=== PATIENT | male | born 1980 | race Two or more races ===

== ENCOUNTER 2021-11-07 10:04 | Inpatient (IN) | payer SELFPAY ==
[2021-11-07] VITALS (33 sets, daily range): BP systolic 81–105; BP diastolic 48–63
[~2021-11-07] VITALS: Ht 182.9 cm; Wt 81.6 kg
--- NOTE | 2021-11-07 10:05 | NUR ---
BIBRA86 FROM STREETS, FOUND UNRESPONSIVE, TACHYCARDIC. NARCAN 2MG GIVEN SWING FRAME GRINDER OPERATOR. PT HOT TO TOUCH, BG 180. PLACED ON BED, NOT RESPONDING TO DEEP PAINFUL STIMULI, SATURATING AT 96% ON NON REBREATHING MASK.
[2021-11-07] MEDS ORDERED: PROPOFOL 0 ML ONE (10:09)
--- NOTE | 2021-11-07 10:10 | NUR ---
PATIENT INTUBATED BY DR ALVA WITH ETOMIDATE 20MG, ROCC 100MCG, ET TUBE 7.5 AT 25LIP, ATTACHED TO VENTILATOR BY RESP. TECH WITH SETTING AC/VC FIO2-50%, VT-500, RATE-16, PEEP-5 SATURATING AT 100%
--- NOTE | 2021-11-07 10:15 | NUR ---
BLOOD DRAWN, SWAB FOR COVID19 AND URINE SAMPLE SENT TO LAB
[2021-11-07] MEDS ORDERED: VANCOMYCIN 1 GM in IV D5W 250 ML IV ONE (10:30)
[2021-11-07] MEDS ORDERED: CEFEPIME 1 GM in IV D5W 50 ML IV ONE (10:30)
[2021-11-07] MEDS ORDERED: IV NS 0.9% 1,000 ML BAG IV ONE (10:30)
[2021-11-07] MEDS ORDERED: ACETAMINOPHEN 650 MG/SUPP.RECT RC ONE ×2 (10:30→11:35)
--- NOTE | 2021-11-07 10:37 | NUR ---
MOVE SHEET SUBMITTED.
[2021-11-07 10:45] LABS: BILIRUBIN,URINE NEGATIVE (NEGATIVE); COLOR,URINE YELLOW (YELLOW); LEUKOCYTE ESTERASE ,URINE NEGATIVE (NEGATIVE); NITRITE, URINE NEGATIVE (NEGATIVE); PROTEIN,URINE TRACE mg/dl (NEGATIVE); UGLUCOSE NEGATIVE (NEGATIVE)
[2021-11-07 10:46] LABS: BASOPHILS % (AUTO) 0.3 % (0.0-2.0); EOSINOPHILS % (AUTO) 0.4 % (0.0-6.0); HEMATOCRIT 43 % (39-51); HEMOGLOBIN 14.2 g/dL (13.5-17.5); LYMPHOCYTES # (AUTO) 1.7 K/uL (0.8-4.8); LYMPHOCYTES % (AUTO) 25.2 % (20.0-44.0); MEAN CORPUSCULAR HGB CONC 33 g/dl (31.0-36.0); MEAN CORPUSCULAR VOLUME 87 fL (80-96); MONOCYTES # (AUTO) 0.3 K/uL (0.1-1.30); MONOCYTES % (AUTO) 4.1 % (2.0-12.0); NEUTROPHILS # (AUTO) 4.7 K/uL (1.8-8.9); PLATELET COUNT (AUTO) 239 K/uL (150-450); RED BLOOD CELL COUNT(AUTO) 4.89 MIL/uL (4.5-6.0); WHITE BLOOD COUNT (AUTO) 6.8 K/uL (4.3-11.0)
--- NOTE | 2021-11-07 10:50 | NUR ---
PT TAKEN TO CT VIA RAURELIA.
[2021-11-07 10:54] LABS: BACTERIA,URINE Few /HPF (None Seen); SQUAMOUS EPITHELIAL CELL,UR Moderate /HPF (None Seen)
--- NOTE | 2021-11-07 11:00 | NUR ---
RT RECD PT ALTERED, INTUBATED BY WITH 7.5 23 CM AT TEETH, SECURED EQUAL BILATERAL BREATH SOUNDS PLACED ON [facility] VENT AC 16 500 +5 100%, ADVANCED ETT TUBE 2CM SECURED AT 25CM AT TEETH, CT DONE WILL CONT TO MONITOR Addendum: 11/07/21 at 1354 by RONNA YBARRA RT Amended: Links added.
[2021-11-07] MEDS ORDERED: NOREPINEPHRINE 4 MG/4 ML AMPUL IV ONE (11:08)
[2021-11-07 11:09] LABS: CALCIUM, SERUM 9.1 mg/dL (8.5-10.1); CARBON DIOXIDE 26 mmol/L (21-32); CHLORIDE 100 mmol/L (98-107); CREATININE 2.3 mg/dL (0.6-1.3); GLUCOSE 132 mg/dL (74-106); POTASSIUM 4.8 mmol/L (3.5-5.1); SODIUM SERUM 138 mmol/L (136-145); UREA NITROGEN, BLOOD 37 mg/dL (7-18)
[2021-11-07 11:13] LABS: ALANINE AMINOTRANSFERASE 72 U/L (12-78); ALBUMIN 3.8 g/dL (3.4-5.0); ALKALINE PHOSPHATASE 58 U/L (46-116); ASPARTATE AMINOTRANSFERASE 59 U/L (15-37); BILIRUBIN,DIRECT 0.3 mg/dL (0.0-0.2); CREATINE KINASE, TOTAL 801 U/L (39-308); TOTAL PROTEIN, SERUM 7.4 g/dL (6.4-8.2)
[2021-11-07 11:24] LABS: ACETAMINOPHEN 0 ug/ml (10-30); ALCOHOL, BLOOD < 3 mg/dL (0-0)
--- NOTE | 2021-11-07 11:25 | NUR ---
STARTED ON NOREPHINEPHRINE AT 0.1MCG/KG/MIN. BP- 75/37, AR-148
[2021-11-07] MEDS ORDERED: NOREPINEPHRINE 8 MG in IV NS 0.9% 242 ML IV PRN (11:30)
[2021-11-07 11:48] LABS: VALPROIC ACID > 50 ug/mL (50-100)
--- NOTE | 2021-11-07 12:10 | NUR ---
CENTRAL LINE INSERTION DONE BY DR ALVA AT RIGHT FEMORAL.
[2021-11-07] MEDS ORDERED: MIDAZOLAM HCL 100 MG in IV NS 0.9% 80 ML IV PRN (12:30)
--- NOTE | 2021-11-07 12:40 | NUR ---
STARTED ON MIDAZOLAM INF. AT 1MG/HR
--- NOTE | 2021-11-07 12:59 | NUR ---
[facility] CALLED WASH OIL PUMP OPERATOR HELPER PAGED.
--- NOTE | 2021-11-07 13:10 | NUR ---
MIDAZIOLAM INF. INCREASED TO 2MG/HR
[2021-11-07 13:18] LABS: ABG BASE EXCESS -5.2 mmol/L; ABG PCO2 32.4 mmHg (35.0-45.0); ABG PH 7.383 (7.350-7.450); ABG PO2 393.7 mmHg (75.0-100.0); COHb 0.3 % (0.5-1.5); MetHb 0.9 % (0.0-1.5); O2Hb 98.1 % (94.0-97.0); SITE, ABG Right Radial; VENT MODE, BG AC 16 500 +5 100%
--- NOTE | 2021-11-07 13:33 | NUR ---
BED 260
--- NOTE | 2021-11-07 13:40 | NUR ---
REPORT GIVEN TO AUDELIA FOX ROOM 260 FOR DANNY
--- NOTE | 2021-11-07 13:48 | NUR ---
LAB CALLED LACTIC ACID 3.5 DR. ALVA AWARE.
[2021-11-07] MEDS ORDERED: CYPROHEPTADINE HCL 4 MG TABLET NG ONE (14:00)
[2021-11-07] MEDS ORDERED: PROPOFOL 100 ML IV PRN (14:00)
--- NOTE | 2021-11-07 14:20 | NUR ---
Admit to ICU Cont Vent Management Sedated on Versed Titrate Levophed to desired effect Restraints applied Cont plan of care Body rash appears to be "Scabies" Follow up Admitting orders
[2021-11-07] MEDS: IV LR 1000 ML 1,000 ML IV PRN ×2 (14:52→23:16)
[2021-11-07] MEDS ORDERED: Z GUARD REMEDY 4 OZ OINT TP PRN (15:00)
[2021-11-07] MEDS ORDERED: ONDANSETRON HCL/PF 4 MG/2 ML VIAL IVP PRN (15:00)
[2021-11-07] MEDS ORDERED: ENOXAPARIN SODIUM 40 MG/0.4 ML DISP.SYRIN SQ SCH (15:00)
--- NOTE | 2021-11-07 15:15 | NUR ---
Not able to insert NGT - not able to administer med Lovenox held - increase oozing and bleeding noted at Right Femoral Insertion site
[2021-11-07 15:22] LABS: THYROID STIMULATING HORMONE 3.028 uIU/mL (0.358-3.74)
[2021-11-07] MEDS: MIDAZOLAM HCL 100 MG in IV NS 0.9% 80 ML IV PRN (16:00)
[2021-11-07] MEDS: NOREPINEPHRINE 8 MG in IV NS 0.9% 242 ML IV PRN (16:00)
[2021-11-07] MEDS: CYPROHEPTADINE HCL 4 MG TABLET GT SCH (18:00)
--- NOTE | 2021-11-07 18:00 | NUR ---
Severe hyperthermia presented in ER 108F, Currently 100.5F, Cont Cooling measures Cont Vent Management for airway management Pt Sedated on Versed Remains on Levophed for BP Support Adequate UOP noted Not able to insert NG, will adm PO med once NGT access establish. Notified PMD Follow up Labs Cont IVF and IV Abx as ordered Cont with plan of care
--- NOTE | 2021-11-07 19:10 | NUR ---
RN OPENING NOTES RECEIVED PATIENT ON BED SEDATED, INTUBATED ETT-7.5 AND SECURED AT 25CM BY THE LIPS, ON MECHANICAL VENTILATION WITH SETTINGS AC-16, TIDAL VOLUME-500, FIO2-40% AND PEEP-5, TOLERATE WELL. NO SOB NOTED, TEMP-100.2 DEGREE FAHRENHEIT . WITH RIGHT FEMORAL CENTRAL LINE, SITE NOTED WITH MODERATE BLEEDING, DRESSING SATURATED WITH BLOOD. RAC # 18 AND LAC #18 PERIPHERAL LINE, PATENT, INTACT, FLUSHED WITH NS. NO S/S OF INFILTRATION NOTED. RUNNING WITH LR @ 125 ML/HR. VERSED @ 7MG/HR, LEVOPHED @ 0.02MCG/KG/MIN. LOPES CATHETER PATENT INTACT DRAINING CLEAR DARK YELLOW URINE VIA GRAVITY. WITH BILATERAL SOFT WRIST RESTRAINT, RELEASE AND ASSESSED Q2HR FOR CIRCULATION. ALL SAFETY PRECAUTION PROVIDED, BED IN LOWEST POSITION, LOCKED. BED ALARM ARMED. CALL LIGHT WITH IN REACH. CONTINUE TO MONITOR.
--- NOTE | 2021-11-07 20:35 | NUR ---
RECEIVED PT INTUBATED 7.5 ETT SECURED AT 25CM. PT TOLERATING VENT SETTINGS. VENT ALARMS SET AND AUDIBLE. CONTINUE TO MONITOR. Addendum: 11/07/21 at 2035 by ANDRÉS CARSON RT Amended: Links added.
--- NOTE | 2021-11-07 22:50 | NUR ---
RN NOTES NOTIFIED JUSTINA SWEET, REGARDING PATIENT'S LATEST TROPONIN- [id number], PER RAGHU HOLD LOVENOX 40MG SQ, BECAUSE PATIENT IS STILL NOTED WITH SCANT BLEEDING ON RIGHT FEMORAL CENTRAL LINE INSERTION SITE. CONTINUE TO MONITOR.
--- NOTE | 2021-11-07 23:10 | NUR ---
RN NOTES NGT INSERTED ON THE RIGHT NARE, VERIFIED PLACEMENT BY AUSCULTATION BY 2 RN, NOTED WITH GASTRIC CONTENT UPON ASPIRATION AND PUSHED IT BACK.
[2021-11-08] VITALS (94 sets, daily range): BP systolic 24–181; BP diastolic 18–93
[2021-11-08] MEDS: MIDAZOLAM HCL 100 MG in IV NS 0.9% 80 ML IV PRN (00:31)
[2021-11-08] MEDS: CYPROHEPTADINE HCL 4 MG TABLET GT SCH ×4 (01:27→17:35)
--- NOTE | 2021-11-08 04:35 | NUR ---
RN NOTES PATIENT IS TACHYPNEIC, TACHYCARDIA, PATIENT ALREADY ON VERSED @ 7MG/HR. LEVO @ 0.4 MCG/KG/MIN. STARTED PROPOFOL @ 5MCG/KG/MIN PER HOSPITAL POLICY
--- NOTE | 2021-11-08 05:11 | NUR ---
ABG DONE RN NOTIFIED
--- NOTE | 2021-11-08 05:20 | NUR ---
RN NOTES NOTED WITH TEMP- 101.5 DEGREE FAHRENHEIT, COOLING MEASURE PROVIDED, ACETAMINOPHEN 650MG NGT GIVEN. CONTINUE TO MONITOR.
[2021-11-08] MEDS: ACETAMINOPHEN 325 MG TABLET PO PRN ×2 (05:21→20:07)
[2021-11-08 05:26] LABS: BASOPHILS % (AUTO) 0.3 % (0.0-2.0); CALCIUM, SERUM 7.5 mg/dL (8.5-10.1); CREATININE 4.4 mg/dL (0.6-1.3); EOSINOPHILS % (AUTO) 0.2 % (0.0-6.0); HEMATOCRIT 46 % (39-51); HEMOGLOBIN 15.2 g/dL (13.5-17.5); LYMPHOCYTES # (AUTO) 0.7 K/uL (0.8-4.8); LYMPHOCYTES % (AUTO) 7.4 % (20.0-44.0); MAGNESIUM 1.9 mg/dL (1.8-2.4); MEAN CORPUSCULAR HGB CONC 33 g/dl (31.0-36.0); MEAN CORPUSCULAR VOLUME 88 fL (80-96); MONOCYTES % (AUTO) 11.3 % (2.0-12.0); NEUTROPHILS # (AUTO) 7.2 K/uL (1.8-8.9); NEUTROPHILS % (AUTO) 80.8 % (43.0-81.0); PHOSPHORUS 1.8 mg/dL (2.5-4.9); POTASSIUM 3.8 mmol/L (3.5-5.1); RED BLOOD CELL COUNT(AUTO) 5.23 MIL/uL (4.5-6.0); WHITE BLOOD COUNT (AUTO) 8.9 K/uL (4.3-11.0)
[2021-11-08 05:34] LABS: PLATELET COUNT (AUTO) 9 K/uL (150-450)
[2021-11-08 05:37] LABS: BAND % (MANUAL) 2 % (0.0-5.0); LYMPHOCYTES % (MANUAL) 12 % (16-48)
[2021-11-08 05:38] LABS: MONOCYTES % (MANUAL) 8 % (0-11.0)
[2021-11-08 05:40] LABS: NEUTROPHILS % (MANUAL) 78 (42-76)
[2021-11-08 05:49] LABS: ABG BASE EXCESS -9.5 mmol/L; ABG OXYGEN SATURATION 93.3 % (92.0-98.5); ABG PCO2 34.3 mmHg (35.0-45.0); ABG PH 7.287 (7.350-7.450); ABG PO2 77.4 mmHg (75.0-100.0); AaDO2 312.7 mmHg; COHb 0.2 % (0.5-1.5); MetHb 0.3 % (0.0-1.5); O2Hb 92.8 % (94.0-97.0); PEEP,BG 5 cm H2O; SITE, ABG Right Radial
--- NOTE | 2021-11-08 05:50 | NUR ---
RN NOTES NOTIFIED JUSTINA SWEET REGARDING PATIENT PLATELETS- 9. PER RAGHU WAIT UNTIL MORNING SHIFT, ENDORSED TO MORNING SHIFT NURSE.
[2021-11-08 05:54] LABS: ALBUMIN 2.6 g/dL (3.4-5.0); BILIRUBIN,TOTAL 2.6 mg/dL (0.2-1.0); TOTAL PROTEIN, SERUM 5.5 g/dL (6.4-8.2)
--- NOTE | 2021-11-08 06:00 | NUR ---
RN NOTES TEMP RECHECKED AND OBTAINED 101.4 DEGREE FAHRENHEIT. CONTINUE TO PROVIDE COOLING MEASURE.
[2021-11-08] MEDS ORDERED: NOREPINEPHRINE 8MG/250ML RTU 250 ML IV ONE (06:13)
[2021-11-08] MEDS: NOREPINEPHRINE 8 MG in IV NS 0.9% 242 ML IV PRN ×2 (06:20→08:37)
--- NOTE | 2021-11-08 07:10 | NUR ---
[address] PATROL Bedside report taken from [facility] nurse Rodrigo FOX. pt sedated on propofol and versed and intubated. pt on fio2 60 %, tolerating well. spo2 100%. mile lung sounds clear diminished at the bases. pt unarousable. pt has no cough or gag, and does not withdraw or have any movements in bue or ble. absent corneal reflexes. pt stach on the monitor with HR 140s. bue and ble pulses present. pt has ngt, positive placement verified. pt npo at this time. pt abdomen soft and non distended. pt has velasquez intact and draining heidi color urine, pt oliguric. pt has generalized rash on trunk, bue and ble. all lines traced. all drips verified. safety measures in place. will continue to monitor.
[2021-11-08] MEDS: IV LR 1000 ML 1,000 ML IV PRN ×3 (07:24→23:38)
--- NOTE | 2021-11-08 07:55 | NUR ---
WEEKDAY BABYSITTER pharmacy called for levophed drip and artificial tears, awaiting delivery.
--- NOTE | 2021-11-08 08:00 | NUR ---
INSPECTOR FLOOR RT decreased fio2 to 40%.
--- NOTE | 2021-11-08 08:30 | NUR ---
MANAGER DATA WAREHOUSE Propofol turned off.
--- NOTE | 2021-11-08 08:46 | NUR ---
RETAIL PHARMACY MERCHANDISER Dr Summers at bedside assessing pt and updated on pt status. md aware that pt hypotensive with bp 50-70s almost maxed out on levophed. new order for yolanda entered by charge nurse Etta FOX, awaiting drip from pharmacy.
[2021-11-08] MEDS ORDERED: LANOLIN/MIN OIL/PETROLAT,WHT 3.5 GM TUBE EACHEYE SCH (09:00)
[2021-11-08] MEDS ORDERED: HEPARIN SODIUM, PORCINE 5000 UNITS/1 ML VIAL SQ SCH (09:00)
--- NOTE | 2021-11-08 09:00 | NUR ---
INVERTED BLOCK OPERATOR Versed turned off. charge nurse aware sbp 60s. Dr Summers aware.
--- NOTE | 2021-11-08 09:06 | NUR ---
DRAG OUT MAN spoke to pharmacy to follow up on neosynephrine drip, informed that drip is needed stat and request for another bag of levophed requested
--- NOTE | 2021-11-08 09:08 | NUR ---
CHILD PSYCHOMETRIST Lab at bedside to draw stat ordered lab per md orders.
[2021-11-08] MEDS: PHENYLEPHRINE 100 MG in IV NS 0.9% 240 ML IV PRN ×3 (09:30→23:24)
--- NOTE | 2021-11-08 09:38 | NUR ---
DEBUG TECHNICIAN Dr Summers made aware that pt maxed out on levophed and neosynephrine started and it is at 2 mcg. verbal order taken and entered per md for vasopressin drip . charge nurse Etta calderon aware.
--- NOTE | 2021-11-08 09:40 | NUR ---
MILLER HELPER DISTILLERY Pt ngt connected to suction >1L coffee ground output removed. Dr Summers aware, hgb 15.2 hct 46 and plt 9. ok per md no new orders at this time. charge nurse Etta FOX aware.
--- NOTE | 2021-11-08 09:51 | NUR ---
OPHTHALMOLOGY ASSISTANT Dr Summers made aware of critical plt 10. no new orders per md .. charge nurse Etta FOX aware.
[2021-11-08] MEDS: NOREPINEPHRINE 32 MG in IV NS 0.9% 218 ML IV PRN ×3 (10:11→21:57)
[2021-11-08] MEDS: PANTOPRAZOLE 40 MG VIAL IV SCH ×2 (10:14→21:56)
[2021-11-08 10:31] LABS: HEMATOCRIT 44 % (39-51); HEMOGLOBIN 14.2 g/dL (13.5-17.5); MEAN CORPUSCULAR HGB CONC 33 g/dl (31.0-36.0); MEAN CORPUSCULAR VOLUME 89 fL (80-96); RED BLOOD CELL COUNT(AUTO) 4.91 MIL/uL (4.5-6.0); WHITE BLOOD COUNT (AUTO) 10.2 K/uL (4.3-11.0)
[2021-11-08] MEDS ORDERED: Sodium Phosphate 30 MMOL in IV NS 0.9% 250 ML IV SCH (11:00)
[2021-11-08 11:01] LABS: PLATELET COUNT (AUTO) 11 K/uL (150-450)
--- NOTE | 2021-11-08 14:14 | NUR ---
DIRECTOR OF HOUSING AND ENERGY SERVICES per lab specimen needs to be recollected for type and cross d/t equipment issues all of specimen was used in process. awaiting medical laboratory technicians to come to bedside for specimen collection and awaiting plts for transfusion. charge nurse Etta FOX aware.
--- NOTE | 2021-11-08 14:35 | NUR ---
PROJECT OFFICER lab coordinator at bedside, specimen drawn and sent to lab.
--- NOTE | 2021-11-08 15:45 | NUR ---
TRANSPORTATION EQUIPMENT PAINTER cooling blanket removed, pt normal temperature 98.3 at this time. will continue to monitor.
--- NOTE | 2021-11-08 15:53 | NUR ---
CERTIFIED NUCLEAR MEDICINE TECHNOLOGIST Pharmacy called informed that levophed and yolanda drip are both at max rate. vasopressin drip requested. awaiting delivery to ICU.
[2021-11-08] MEDS: VASOPRESSIN INJ 40 UNIT in IV NS 0.9% 38 ML IV PRN (16:05)
[2021-11-08 16:50] LABS: D-DIMER > 35.20 mg/L(FEU (0.17-0.50)
--- NOTE | 2021-11-08 17:23 | NUR ---
LUGGAGE ATTENDANT Renan Estrada CORK MOLDER made aware of critical result that blood cultures positive for gram positive cocci in clusters and coagulation results are pt>100 PTT 133.9 INR >10 Fibrinogen >700 DDimer >35.2 Order for 4 units of FFP and 2 cryprocipitate entered with Charge nurse Etta FOX per CORK MOLDER order. charge nurse called lab to follow up on 1 unit plt ordered from am, per lab, unit will not be available for 4 more hours
--- NOTE | 2021-11-08 18:44 | NUR ---
SLAB GRINDER pharmacy called to request vasopressin, request denied, remainder of bag should last duration of hourly shift per pharmacist.
--- NOTE | 2021-11-08 19:02 | NUR ---
REDEVELOPMENT SPECIALIST Bedside report given to [facility] nurse Rodrigo FOX. pt intubated , no sedation, pt unrsponsive, no cough , no gag, no corneals and no movement in bue or ble. pt on max dosage of levophed, neosynephrine and vasopressin. all lines traced. all drips verified. safety measures in place. pt clean and dry. pt hemodynamically unstable at this time. EEG pending. 2 units cryo and 4 units FFP pending awaiting for products to be ready from blood bank, endorsed to [facility] nurse.
--- NOTE | 2021-11-08 19:10 | NUR ---
RN OPENING NOTES RECEIVED PATIENT ON BED, NO SEDATION, INTUBATED ETT-7.5 AND SECURED AT 25CM BY THE LIPS, ON MECHANICAL VENTILATION WITH SETTINGS AC-16, TIDAL VOLUME-500, FIO2-40% AND PEEP-5. PT. UNRESPONSIVE, NO CORNEAL REFLEX, NO GAG, NO COUGHING, NO MOVEMENT ON ALL EXTREMITIES. WITH RIGHT FEMORAL CENTRAL LINE, SITE NOTED WITH MODERATE BLEEDING, DRESSING SATURATED WITH BLOOD. RAC # 18 AND LAC #18 PERIPHERAL LINE, PATENT, INTACT, FLUSHED WITH NS. NO S/S OF INFILTRATION NOTED. RUNNING WITH LR @ 125 ML/HR. MAX ON LEVOPHED, MAX ON NEOSYNEPHRINE, MAX ON VASOPRESSIN. LOPES CATHETER PATENT INTACT DRAINING MINIMAL URINE OUTPUT VIA GRAVITY. ALL SAFETY PRECAUTION PROVIDED, BED IN LOWEST POSITION, LOCKED. BED ALARM ARMED. CALL LIGHT WITH IN REACH. CONTINUE TO MONITOR.
[2021-11-08] MEDS ORDERED: ETOMIDATE 2 MG/ML VIAL IV ONE (19:34)
[2021-11-08] MEDS ORDERED: ROCURONIUM BROMIDE 50 MG/5 ML IV ONE (19:34)
--- NOTE | 2021-11-08 20:30 | NUR ---
RN NOTES CALLED JUSTINA SWEET, PATIENT S IS ON 30-40'S. UNABLE TO REACH AT THIS TIME, WAITING FOR CALL BACK.
--- NOTE | 2021-11-08 21:37 | NUR ---
RN NOTES SPOKE TO PIPER PORTILLO, NO BLOOD WILL RELEASE UNTIL CONSENT SIGNED BY THE MD, AND SHE WILL LEAVE BY 10PM. JUSTINA SWEET NOTIFIED.
--- NOTE | 2021-11-08 22:25 | NUR ---
RN NOTES NOTIFIED NURSING WIRE STRANDER, FILOMENA, REGARDING BLOOD TRANSFUSION NOT RELEASE BY CLS TALIA PORTILLO, EMERGENCY CONSENT FOR BLOOD TRANSFUSION NOT SIGNED BY . AND PER NURSING WIRE STRANDER SHE WILL THE DIRECTOR OF LABORATORY.
--- NOTE | 2021-11-08 23:00 | NUR ---
RN NOTES CHARGE NURSE SPOKE TO JUSTINA SWEET, NO BP APPRECIATED, BUT WITH PULSE USING DOPPLER.
[2021-11-08] MEDS ORDERED: PHENYLEPHRINE 10 MG/ML VIAL ONE (23:15)
[2021-11-08 23:18] LABS: BASOPHILS % (AUTO) 0.4 % (0.0-2.0); EOSINOPHILS % (AUTO) 0.1 % (0.0-6.0); HEMATOCRIT 42 % (39-51); HEMOGLOBIN 13.2 g/dL (13.5-17.5); LYMPHOCYTES # (AUTO) 0.8 K/uL (0.8-4.8); MEAN CORPUSCULAR HGB CONC 32 g/dl (31.0-36.0); MEAN CORPUSCULAR VOLUME 93 fL (80-96); MONOCYTES # (AUTO) 0.5 K/uL (0.1-1.30); MONOCYTES % (AUTO) 4.3 % (2.0-12.0); NEUTROPHILS # (AUTO) 9.9 K/uL (1.8-8.9); NEUTROPHILS % (AUTO) 88.2 % (43.0-81.0); RED BLOOD CELL COUNT(AUTO) 4.53 MIL/uL (4.5-6.0); WHITE BLOOD COUNT (AUTO) 11.2 K/uL (4.3-11.0)
[2021-11-08 23:25] LABS: PLATELET COUNT (AUTO) 14 K/uL (150-450)
--- NOTE | 2021-11-08 23:26 | NUR ---
RN NOTES RECEIVED LAB RESULT FROM LABORATORY, PLATELETS-14, HGB- 13.2, HEMATOCRIT- 42, DNP RAGHU MADE AWARE.
--- NOTE | 2021-11-08 23:51 | NUR ---
RN NOTES @ 2351, STILL NOTED WITH PULSE USING DOPPLER, BUT NO BP APPRECIATED.
[2021-11-09] VITALS (8 sets, daily range): BP systolic 0–61; BP diastolic 0–31
--- NOTE | 2021-11-09 00:24 | NUR ---
RN NOTES RECEIVED LAB RESULT FROM LABORATORY, PT->100, INR- >10, PTT- > 135,
[2021-11-09] MEDS: CYPROHEPTADINE HCL 4 MG TABLET GT SCH ×2 (01:14→06:54)
--- NOTE | 2021-11-09 01:22 | NUR ---
RN NOTES @0123, STILL NOTED WITH PULSE USING DOPPLER, NO BP APPRECIATED. SATURATION- 75%, RT NOTIFIED AND INCREASED FIO2 TO 100%. CHARGE NURSE AWARE.
--- NOTE | 2021-11-09 02:48 | NUR ---
RN NOTES @ 0248 PATIENT RHYTHM CHANGED TO SVT @ 0250 PATIENT BECAME BRADYCARDIA- HR-12 @ 0251 PEA, CALLED BLUE CALLED, CPR INITIATED, ER AT BEDSIDE, ACLS PROTOCOL INITIATED.
--- NOTE | 2021-11-09 02:59 | NUR ---
RN NOTES RETURN OF SPONTANEOUS CIRCULATION
[2021-11-09] MEDS ORDERED: DEXTROSE 50%-WATER 50 ML DISP.SYRIN ONE (03:02)
--- NOTE | 2021-11-09 03:04 | NUR ---
@0251 CODE BLUE CALLED. CPR INITIATED. ER AT BEDSIDE. ROSC @0259. PT PLACED BACK ON THE VENT.
[2021-11-09] MEDS ORDERED: DEXTROSE 50%-WATER 50 ML DISP.SYRIN IVP ONE ×2 (03:30→05:30)
[2021-11-09] MEDS: NOREPINEPHRINE 32 MG in IV NS 0.9% 218 ML IV PRN (04:01)
[2021-11-09] MEDS: VASOPRESSIN INJ 40 UNIT in IV NS 0.9% 38 ML IV PRN (04:08)
[2021-11-09] MEDS: BLOOD SUGAR DIAGNOSTIC 1 EACH STRIP IN SCH ×3 (04:20→06:53)
--- NOTE | 2021-11-09 04:20 | NUR ---
RN NOTES BLOOD SUGAR CHECKED BS- 91 mg/dL
[2021-11-09 04:45] LABS: BASOPHILS % (AUTO) 0.3 % (0.0-2.0); EOSINOPHILS % (AUTO) 0.1 % (0.0-6.0); HEMATOCRIT 39 % (39-51); HEMOGLOBIN 12.7 g/dL (13.5-17.5); LYMPHOCYTES # (AUTO) 0.9 K/uL (0.8-4.8); LYMPHOCYTES % (AUTO) 10.3 % (20.0-44.0); MEAN CORPUSCULAR HGB CONC 32 g/dl (31.0-36.0); MEAN CORPUSCULAR VOLUME 93 fL (80-96); MONOCYTES # (AUTO) 0.2 K/uL (0.1-1.30); MONOCYTES % (AUTO) 2.5 % (2.0-12.0); NEUTROPHILS # (AUTO) 7.5 K/uL (1.8-8.9); NEUTROPHILS % (AUTO) 86.8 % (43.0-81.0); RED BLOOD CELL COUNT(AUTO) 4.22 MIL/uL (4.5-6.0); WHITE BLOOD COUNT (AUTO) 8.7 K/uL (4.3-11.0)
[2021-11-09 05:04] LABS: CALCIUM, SERUM 6.2 mg/dL (8.5-10.1); CARBON DIOXIDE 12 mmol/L (21-32); CHLORIDE 106 mmol/L (98-107); MAGNESIUM 2.7 mg/dL (1.8-2.4); SODIUM SERUM 143 mmol/L (136-145); UREA NITROGEN, BLOOD 75 mg/dL (7-18)
[2021-11-09] MEDS ORDERED: PHENYLEPHRINE 10 MG/ML VIAL ONE (05:05)
[2021-11-09] MEDS: PHENYLEPHRINE 100 MG in IV NS 0.9% 240 ML IV PRN (05:11)
[2021-11-09 05:36] LABS: CREATINE KINASE, TOTAL > 1000 U/L (39-308)
[2021-11-09 05:48] LABS: POTASSIUM 9.5 mmol/L (3.5-5.1)
[2021-11-09 05:49] LABS: CREATININE 8.4 mg/dL (0.6-1.3); GLUCOSE 3 mg/dL (74-106); PHOSPHORUS 17.8 mg/dL (2.5-4.9)
[2021-11-09 05:54] LABS: PLATELET COUNT (AUTO) 14 K/uL (150-450)
--- NOTE | 2021-11-09 06:00 | NUR ---
RN NOTES RECEIVED CRITICAL LAB RESULT, PLATELETS- 14, POTASSIUM-9.5, GLUCOSE-3, CREA- 8.4, PHOSPHORUS- 17.8, BLOOD CULTURE 1 BOTTLE OF SET GRAM POSITIVE COCCI IN CLUSTER. JUSTINA SWEET NOTIFIED WITH NEW ORDER NOTED AND CARRIED OUT.
[2021-11-09] MEDS ORDERED: IV 10% DEXTROSE 1,000 ML IV PRN (07:00)
[2021-11-09] MEDS ORDERED: INSULIN REGULAR, HUMAN 100 UNIT/ML 10 ML VIAL IV ONE (07:00)
--- NOTE | 2021-11-09 07:04 | NUR ---
RN NOTES JENNIFER NO CALLED, CPR INITIATED, ER AT BEDSIDE, ACLS PROTOCOL INITIATED, PATIENT PRONOUNCE BY DR. ALVA AT 0708 Addendum: 11/09/21 at 0832 by GISELA MCCLELLAN RN CALLED NATHANIEL NO
--- NOTE | 2021-11-09 07:14 | NUR ---
RN NOTES CALLED [facility], SPOKE TO JULIA, WITH CASE NO. [id number].
--- NOTE | 2021-11-09 08:03 | NUR ---
RN NOTES CALLED CARPENTER ASSEMBLER'S OFFICE, SPOKE TO SANTO, WITH CASE NO. [id number].
[2021-11-09] MEDS ORDERED: CALCIUM CHLORIDE 1,000 MG/10 ML DISP.SYRIN IV ONE (08:14)
[2021-11-09] MEDS ORDERED: DEXTROSE 50%-WATER 50 ML DISP.SYRIN IV ONE (08:14)
[2021-11-09] MEDS ORDERED: EPINEPHRINE (1:10,000) SYRINGE 1 MG/10 ML DISP.SYRIN IVP ONE (08:14)
[2021-11-09] MEDS ORDERED: SODIUM BICARBONATE SYR 50 MEQ/50 ML DISP.SYRIN IV ONE (08:14)
--- NOTE | 2021-11-09 08:20 | NUR ---
ICU/RN POSTMORTEM CARE DONE.IT IS CORONERS CASE.BODY IS SENT TO [facility] WITH ALL BELONGING. COPY OF THE CHART DONE. PT IS HOMELESS.NO FAMILY.
[2021-11-09] MEDS ORDERED: LANOLIN/MIN OIL/PETROLAT,WHT 3.5 GM TUBE EACHEYE SCH (09:00)
[2021-11-09 09:26] LABS: BAND % (MANUAL) 23 % (0.0-5.0); LYMPHOCYTES % (MANUAL) 13 % (16-48); MONOCYTES % (MANUAL) 4 % (0-11.0); NEUTROPHILS % (MANUAL) 60 (42-76)
[2021-11-09 10:10] LABS: BAND % (MANUAL) 20 % (0.0-5.0); EOSINOPHILS % (MANUAL) 0 % (0-4); LYMPHOCYTES % (MANUAL) 17 % (16-48); MONOCYTES % (MANUAL) 3 % (0-11.0); NEUTROPHILS % (MANUAL) 60 (42-76)
== END 2021-11-09 07:08 | DRG 922 ==
LOC: ER 10:08 → ICU 13:47
PROVIDERS: ADMIT Nurse Practitioner Acute Care; ATTEND Nurse Practitioner Acute Care
PROC: 5A1945Z Respiratory Ventilation, 24-96 Consecutive Hours (ICD-10-PCS; principal; 2021-11-07)
PROC: 0BH18EZ Insertion of Endotracheal Airway into Trachea, Via Natural or Artificial Opening Endoscopic (ICD-10-PCS; 2021-11-07)
PROC: 5A2204Z Restoration of Cardiac Rhythm, Single (ICD-10-PCS; 2021-11-09)
DX: T67.01XA Heatstroke and sunstroke, initial encounter (principal); D65 Disseminated intravascular coagulation [defibrination syndrome]; G93.41 Metabolic encephalopathy; J96.00 Acute respiratory failure, unspecified whether with hypoxia or hypercapnia; N17.0 Acute kidney failure with tubular necrosis; M62.82 Rhabdomyolysis; E87.2 Acidosis; K92.2 Gastrointestinal hemorrhage, unspecified; T50.991A Poisoning by other drugs, medicaments and biological substances, accidental (unintentional), initial encounter; X30.XXXA Exposure to excessive natural heat, initial encounter; Y92.410 Unspecified street and highway as the place of occurrence of the external cause; B86 Scabies; Z20.822 Contact with and (suspected) exposure to COVID-19; E86.1 Hypovolemia; F19.10 Other psychoactive substance abuse, uncomplicated; R74.01 Elevation of levels of liver transaminase levels; E87.5 Hyperkalemia; E16.2 Hypoglycemia, unspecified; S06.890A Other specified intracranial injury without loss of consciousness, initial encounter
CPT/HCPCS: 31720; 36415; 36600; 70450-TC; 71045-TC; 72125-TC; 80048-TC; 80053-TC; 80061-TC; 80076-TC; 80164-TC; 81001; 82550-TC; 82553; 82803-TC; 82962-TC; 83605-TC; 83735-TC; 84100-TC; 84443-TC; 84484-TC; 85025-TC; 85027-TC; 85396; 85730-TC; 86850-TC; 87040-TC; 87081-TC; 92950-TC; 93307-TC; 94003-TC; 94760-TC; 94762-TC; 94799-TC; 99082-TC; A9563; C9113; C9803; G0378; G0480; J0171; J0692; J1815; J2250; J2370; J3490; J7030; J7050; J7060; J7120; L0172